=== PATIENT | male | born 1990 | race Caucasian/White ===

== ENCOUNTER 2024-02-23 12:52 | Emergency (ER) | payer OTHER, SELFPAY ==
[2024-02-23 13:54] VITALS: BP 150/84; PULSE 78; RESP 16; TEMP 37; O2SAT 98; BMI 25.1
--- NOTE | 2024-02-23 13:56 | ED_ITS ---
HPI - Eye Problem General Chief complaint: Eye Problems Stated complaint: pressure in L eye Time Seen by Provider: 02/23/24 17:07 Source: patient Mode of arrival: ambulatory Limitations: no limitations History of Present Illness HPI Narrative: Patient with no significant past medical history noticed pressure in the left 3 days no scotomas patient is supposed to wear glasses not wearing it no headache no nausea no vomiting no photosensitive no scotomas visual lindsey normal Related Data Allergies Allergy/AdvReac Type Severity Reaction Status Date / Time Sulfa Allergy Mild Hives Uncoded 02/23/24 13:59 Review of Systems Review of Systems: Yes all other systems are reviewed and are negative [facility] Social History Social History Unable to assess alcohol history related to: Unknown Smoked in Last 30 Days: No Use of substances other than those prescribed or required for medical reasons: No Advance Directives: No Physical Exam Vital Signs: Vital Signs: Last Vital Signs Temp 97.8 F 02/23/24 18:21 Pulse 61 02/23/24 18:21 Resp 18 02/23/24 18:21 BP 130/70 02/23/24 18:21 Pulse Ox 99 02/23/24 17:17 O2 Del Method Room Air 02/23/24 18:21 BMI result Body Mass Index 25.1 Appearance: Alert. Oriented X3. No acute distress. Eyes: PERRLA, No Nystagmus fundus normal IOP 13 on the left eye and 14 in the right eye visual lindsey normal ENT: Pharynx normal. Oral Mucosa moist no temporal artery tenderness Neck: Normal inspection. Neck supple. CVS: Normal heart rate and rhythm. Pulses normal. Respiratory: No respiratory distress. Equal air entry bilateral, no wheezing/rales/rhonchi Abdomen: Soft and nontender. Bowel sounds are present, Skin: Skin warm and dry. Normal skin color. Normal skin turgor. Extremities: No lower extremity edema. No calf tenderness Neuro: Oriented X 3. No motor deficit. Course Course Course Narrative: RME: 33-year-old male with no significant pmhx?here w/ left eye pressure x5 days. Originally thought this discomfort was due to screen time however it has not resolved. He is prescribed glasses however does not wear them. Does not wear contacts. denies injury or trauma to the eye. denies vision changes. Does not recall getting anything into the eye. denies hx of eye conditions. He has not been taking any hcxr-fpy-mvdlnwl medications at home for this. plan for tonopen +/- fluorescein stain Full HPI, ROS and PE to be performed by the primary ED provider. Medical Decision Making Medical Decision Making [facility] Narrative: Patient with left ocular pain IOP normal no signs of glaucoma you will acuity is 20/70 both eyes patient is supposed to wear glasses not wearing them likely the cause possible patient may have ocular migraine patient advised to follow-up with PCP/race relations professor Differential Diagnosis Differential Diagnoses: The differential diagnosis associated with the presentation includes Glaucoma/ocular migraine/refractory error Discharge Plan Discharge Clinical Impression: Ocular pain, left eye Patient Disposition: Home, Self-Care Instructions: Eye Pain (ED) Additional Instructions: Pressure in the eyes are normal Likely possibility You have ocular migraine Wear the glasses for refractory error Tylenol/Motrin for the pain Follow-up with race relations professor Interventions: ED Discharge Assessment Last Done: 02/23/24 18:21 Discharge Date/Time: 02/23/24 18:22 Print Language: Spanish
[2024-02-23 17:17] VITALS: BP 130/70; PULSE 61; RESP 16; TEMP 36.6; O2SAT 99
[2024-02-23 18:21] VITALS: BP 130/70; PULSE 61; RESP 18; TEMP 36.6
== END 2024-02-23 18:22 | disposition home or self-care (01) ==
PROVIDERS: Emergency Provider Internal Medicine
DX: H57.12 Ocular pain, left eye (principal)
CPT/HCPCS: 99282; 99284

== ENCOUNTER 2025-01-10 10:23 | Outpatient (AMB) | payer OTHER, SELFPAY ==
--- NOTE | 2025-01-10 10:50 | A.OFFPC_ITS ---
Vital Signs 01/10/25 10:51 Height 5 ft 9.09 in Weight 190 lb 2 oz BMI 28.0 BP 110/72 Blood Pressure Location Lt brachial Position Sitting Pulse 92 Pulse Source Pulse Oximeter Temp 97.3 F Temp Source Temporal Artery Scan Pulse Oximetry (%) 98 Oxygen Delivery Method Room Air Intake Visit Reasons: establish care Intake Note: Patient is a new patient here to establish care for Wellness visit. Transferring care from unknown. Medical records have not been requested and have not received. Pt decline flu shot today. [employer] Required: No Sole Layer Hand: Not Required per policy Accompanied by: Self / Same As Patient Allergies Sulfa Allergy (Mild, Uncoded 01/10/25 11:21) Hives Medication List - Last Reconciled 01/10/25 by Peter Polo PA-C No Known Home Meds Tobacco use date assessed: 01/10/25 Dental Screening Dental Screen Date: 01/10/25 Did you have a dental visit in the last 12 months?: Yes Did you have a dental problem in the last 6 months where you did not have access to dental care?: No Was dental information given to patient?: Patient has dentist HPI establish care HPI Details Patient is a 34-year-old male here today for a new patient visit.. Not seen a PCP in over 10 years Patient has a past medical history significant for high cholesterol. Concerns--> reports having bilateral tinnitus over last several years. He is interested in hearing exam. Also is concerned about some skin lesions on his back he would like to see a harvesting contractor for for evaluation. Vaccines: Up-to-date with COVID vaccine, needs new Tdap vac PFSH Surgical History No pertinent past surgical history Family History (Updated 01/10/25 @ 11:26 by Peter Polo PA-C) Mother ESRD (end stage renal disease) Ovarian cancer Social History (Updated 01/10/25 @ 11:26 by Peter Polo PA-C) Housing: House Alcohol intake: current Alcohol intake frequency: holidays/special occasions only Patient Tobacco Use Status: Never used Tobacco e-Cigarette/Vaping Use: Never Used Second Hand Smoke Exposure: No service: No Current occupational status: employed Current occupation: Software product developler Cognitive needs: No Hearing needs: No Vision needs: Yes (Glasses) Questionnaire PHQ-9 Over the last 2 weeks, how often have you been bothered by any of the following problems? 1. Little interest or pleasure in doing things: not at all 2. Feeling down, depressed, or hopeless: not at all 3. Trouble falling or staying asleep, or sleeping too much: not at all 4. Feeling tired or having little energy: not at all 5. Poor appetite or overeating: not at all 6. Feeling bad about yourself - or that you are a failure or have let yourself or your family down: not at all 7. Trouble concentrating on things, such as reading the newspaper or watching television: not at all 8. Moving or speaking so slowly that other people could have noticed. Or the opposite - being so fidgety or restless that you have been moving around a lot more than usual: not at all 9. Thoughts that you would be better off or of hurting yourself in some way: not at all Total score: 0 Depression Screening Interpretation: Negative Depression Screening Done: Yes 71546 - PHQ-9 Billing: Yes Source: Developed by Drs. Nacho Rankin, Dian Nation, Armond Chery and colleagues, with an educational gokul from [employer]. Thrive Questionnaire Date Thrive assessed: 01/10/25 I am a: Patient What is your living situation today?: I have a steady place to live Within the past 12 months, did the food you bought not last and you didn't have the money to get more?: Never true Within the past 12 months, did you worry whether your food would run out before you got money to buy more?: Never true Do you have trouble paying for medicines?: No Do you have trouble getting transportation to medical appointments?: No Do you have trouble paying your heating and electricity bill?: No Do you have trouble taking care of your child, family member or friend?: No Do you have trouble with day-to-day activities such as bathing, preparing meals, shopping, managing finances, etc.?: No Are you currently unemployed and looking for a job?: No Are you interested in more education?: No Please select the resources that you would like help with: None Currently or been in a relationship where the following occur: No concerns reported THRIVE Score: 0 AUDIT C Alcohol Use Questionnaire (AUDIT-C) 1. How often do you have a drink containing alcohol?: Monthly or less 2. How many drinks containing alcohol do you have on a typical day when you are drinking?: 1 or 2 3. How often do you have six or more drinks on one occasion?: Never Total Score: 1 CORINA-7 AMB Questionnaire CORINA-7 Date CORINA - 7 assessed: 01/10/25 Feeling nervous, anxious, or on edge: 0 = Not at all Not being able to stop or control worryin = Not at all Worrying too much about different things: 0 = Not at all Trouble relaxin = Not at all Being so restless that it is hard to sit still: 0 = Not at all Becoming easily annoyed or irritable: 0 = Not at all Feeling afraid as if something awful might happen: 0 = Not at all Total CORINA-7 score (0-4 normal; 5-9 mild; 10-14 moderate; 15-21 severe): 0 Source: Developed by Drs. Nacho Rankin, Dian Nation, Armond Chery and colleagues, with an educational gokul from [employer]. CORINA-7 Assessment Billing CORINA-7 Assessment Tool: CORINA-7 Assessment 66086 Review of Systems Const Denies headache(s) Eyes Denies loss of vision ENT Denies vertigo, Denies dizziness, Denies headache(s) and Denies sore throat Card Denies chest pain, Denies leg edema and Denies lightheadedness Resp Denies cough, Denies hemoptysis and Denies wheezing GI Denies abdominal pain, Denies melena, Denies constipation, Denies diarrhea and Denies vomiting Denies dysuria, Denies urinary frequency and Denies urinary urgency Musc Denies arthralgias, Denies joint swelling, Denies numbness and Denies tingling Neuro Denies Abnormal speech present, Denies behavioral changes, Denies vertigo, Denies dizziness, Denies headache(s), Denies loss of vision, Denies memory loss, Denies numbness and Denies tingling Psych Denies anxiety, Denies behavioral changes, Denies depression, Denies memory loss and Denies panic attacks Santiago/Lymph Denies easy bleeding and Denies easy bruising Aller/Immun Denies wheezing Physical exam (Primary Care) Vital Signs: Last Vital Signs Temp 97.3 F 01/10/25 10:51 Pulse 92 01/10/25 10:51 BP 110/72 01/10/25 10:51 Pulse Ox 98 01/10/25 10:51 Oxygen Delivery Method Room Air 01/10/25 10:51 BMI result Body Mass Index 28.0 Tobacco/Smoking Status: Tobacco use Status Tobacco use date assessed 01/10/25 01/10/25 10:58 Patient Tobacco Use Status Never used Tobacco 01/10/25 11:26 e-Cigarette/Vaping Use Never Used 01/10/25 11:26 PHQ-9: PHQ-9 Score PHQ-9: Total score 0 01/10/25 11:27 Depression Screening Interpretation: Negative Thrive Assessment: Date of Thrive Assessment Date Thrive assessed 01/10/25 01/10/25 10:58 Currently or been in a relationship where the following occur: No concerns reported Const General: healthy appearing, no acute distress, alert and awake Nutritional Appearance: well nourished Orientation/consciousness: oriented to person, oriented to place and oriented to time HENMT Ears: TM's normal bilaterally General nose exam: Normal nasal mucous membranes and turbinates present Eyes Conjunctivae: conjunctivae normal Sclerae: sclerae normal Pupils: Equal, round and reactive pupils present Neck Neck: Yes no lymphadenopathy and Yes no JVD Thyroid: Thyroid normal Carotids: no bruits Resp Effort & Inspection: normal respiratory effort and not tachypneic Auscultation: no crackles, no rales, no rhonchi and no wheezes Cardio Rate: regular rate Rhythm: regular rhythm Heart sounds: no murmurs and normal S1 and S2 GI Palpation (GI): Soft to palpation, nontender, no hepatomegaly and no splenomegaly Auscultation: normal bowel sounds Skin General skin exam: no rashes or lesions noted and dry skin Neuro General: oriented to person, oriented to place and oriented to time Cranial nerves: Yes Equal, round and reactive pupils present Speech: No Abnormal speech present Gait exam (Neuro): Normal gait present Motor exam (neuro): no tremor noted Extrem Right upper extremity: full ROM Left upper extremity: full ROM Right lower extremity: full ROM; no edema Left lower extremity: full ROM; no edema Psych Mental Status: mental status grossly normal Speech and movement: Normal speech and movement present Affect: normal affect Attitude: cooperative Thought process: Normal thought process present Coding Level of Care Code New Pt Level 4 (52558) Diagnoses Tinnitus of both ears H93.13 Screening for diabetes mellitus (DM) Z13.1 Borderline high cholesterol E78.9 Skin lesion of back L98.9 Additional Codes PHQ-9 - 77474 - PHQ-9 Billing: Yes ([id number]) CORINA-7 Assessment Billing - CORINA-7 Assessment Tool: CORINA-7 Assessment 75198 ([id number]) Assessment & Plan Assessment & Plan (1) Tinnitus of both ears: Code(s): H93.13 - Tinnitus, bilateral Category: Medical Plan: Has noted tinnitus in both ears for the past 5 years. He was interested in getting a hearing exam. (2) Screening for diabetes mellitus (DM): Code(s): Z13.1 - Encounter for screening for diabetes mellitus Category: Medical Plan: As per HPI (3) Borderline high cholesterol: Code(s): E78.9 - Disorder of lipoprotein metabolism, unspecified Category: Medical Plan: Patient does report a history of borderline high cholesterol. Will recheck fasting lipids. Advised dietary modifications. (4) Skin lesion of back: Code(s): L98.9 - Disorder of the skin and subcutaneous tissue, unspecified Category: Medical Plan: Has a few skin lesions over his back. He is interested in having dermatology evaluate. Orders: Orders Comprehensive [place]. Panel Fast 01/10/25 Z13.1 - Encounter for screening for diabetes mellitus Referrals Dermatology Referral L98.9 - Disorder of the skin and subcutaneous tissue, unspecified Speech and Hearing Referral H93.13 - Tinnitus, bilateral
[2025-01-10 10:51] VITALS: BP 110/72; PULSE 92; TEMP 36.3; O2SAT 98; BMI 28.0
== END 2025-01-10 11:39 | disposition home or self-care (01) ==
PROVIDERS: Visit Provider Physician Assistant
DX: H93.13 Tinnitus, bilateral (principal); Z13.1 Encounter for screening for diabetes mellitus; E78.9 Disorder of lipoprotein metabolism, unspecified; L98.9 Disorder of the skin and subcutaneous tissue, unspecified

== ENCOUNTER → 2025-01-10 10:23 | Outpatient (BNVA) | payer OTHER, SELFPAY | PROVIDERS: Visit Provider Physician Assistant | DX: H93.13 Tinnitus, bilateral (principal); E78.9 Disorder of lipoprotein metabolism, unspecified; L98.9 Disorder of the skin and subcutaneous tissue, unspecified | CPT/HCPCS: 96127 ==

== ENCOUNTER 2025-01-16 09:05 | Outpatient (REF) | payer OTHER, SELFPAY | END 2025-01-16 09:06 | disposition home or self-care (01) | LOC: HO.SH 09:05 | PROVIDERS: Visit Provider Physician Assistant | DX: Z01.118 Encounter for examination of ears and hearing with other abnormal findings (principal); H93.13 Tinnitus, bilateral | CPT/HCPCS: 92557 ==